=== PATIENT | male | born 2000 | race American Indian/Alaskan Native ===

== ENCOUNTER 2018-12-13 16:24 | Emergency (ER) | payer SELFPAY ==
[2018-12-13 17:58] VITALS: BP 130/74
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
== END 2018-12-13 22:18 | disposition left against medical advice (07) ==
LOC: ED 16:24
DX: R26.89 Other abnormalities of gait and mobility (principal); Z53.21 Procedure and treatment not carried out due to patient leaving prior to being seen by health care provider

== ENCOUNTER 2019-06-13 09:40 | Emergency (ER) | payer SELFPAY ==
[2019-06-13 10:10] VITALS: BP 115/74
--- NOTE | 2019-06-13 12:30 | Emergency Department Report ---
ED Lower Extremity HPI - General Chief Complaint: Extremity Problem,Nontraumatic Stated Complaint: RT KNEE PAIN/CHECK UP Time Seen by Provider: 06/13/19 11:35 Source: patient Mode of arrival: Ambulatory Limitations: No Limitations - History of Present Illness Initial Comments: This is a 19-year-old male nontoxic, well nourished in appearance, no acute s igns of distress presents to the ED with c/o of intermittent chronic right knee pain 1 month. Patient denies any injuries or trauma. Patient denies any numbness, tingling, fever, chills, nausea, vomiting, chest pain, shortness of breath, headache, stiff neck. Patient denies any joint swelling or joint redness. Patient denies decreased range of motion. Patient denies any decreased or abnormal gait due. Patient denies any drug allergies or significant past medical history. Injury: Knee: Right Severity: mild Severity scale (0 -10): 3 Improves With: nothing Worsens With: nothing Associated Symptoms: ambulatory. denies: snap/pop sensation, swelling, numbness, tingling, unable to bear weight, able to partially bear weight - Related Data Allergies Allergy/AdvReac Type Severity Reaction Status Date / Time No Known Allergies Allergy Verified 06/13/19 09:41 ED Review of Systems ROS: Stated complaint: RT KNEE PAIN/CHECK UP Other details as noted in HPI Constitutional: denies: chills, fever Eyes: denies: eye pain, eye discharge, vision change ENT: denies: ear pain, throat pain Respiratory: denies: cough, shortness of breath, wheezing Cardiovascular: denies: chest pain, palpitations Endocrine: no symptoms reported Gastrointestinal: denies: abdominal pain, nausea, diarrhea Genitourinary: denies: urgency, dysuria Musculoskeletal: denies: back pain, joint swelling, arthralgia Skin: denies: rash, lesions Neurological: denies: headache, weakness, paresthesias Psychiatric: denies: anxiety, depression Hematological/Lymphatic: denies: easy bleeding, easy bruising ED Past Medical Hx - Past Medical History Previous Medical History?: No - Surgical History Past Surgical History?: No - Social History Smoking Status: Current Every Day Smoker Substance Use Type: None ED Physical Exam - General Limitations: No Limitations General appearance: alert, in no apparent distress - Head Head exam: Present: atraumatic, normocephalic - Neck Neck exam: Present: normal inspection, full ROM. Absent: lymphadenopathy - Extremities Exam Extremities exam: Present: normal inspection, full ROM, normal capillary refill. Absent: tenderness, joint swelling, calf tenderness - Expanded Lower Extremity Exam Right Hip exam: Present: normal inspection, full ROM. Absent: tenderness, swelling Upper Leg exam: Present: normal inspection, full ROM. Absent: tenderness, swelling Knee exam: Present: normal inspection, full ROM, full knee extension. Absent: tenderness, swelling, abrasion, laceration, ecchymosis, deformity, crepidus, dislocation, erythema, effusion, pain w/ pronation/supination, posterior draw sign, pain/laxity with valgus, pain/laxity with varus Lower Leg exam: Present: normal inspection, full ROM. Absent: tenderness, swelling Ankle exam: Present: normal inspection, full ROM. Absent: tenderness, swelling Foot/Toe exam: Present: normal inspection, full ROM. Absent: tenderness, swelling Neuro vascular tendon exam: Present: no vascular compromise Gait: Positive: observed and normal - Back Exam Back exam: Present: normal inspection, full ROM - Neurological Exam Neurological exam: Present: alert, oriented X3, normal gait - Psychiatric Psychiatric exam: Present: normal affect, normal mood - Skin Skin exam: Present: warm, dry, intact, normal color. Absent: rash ED Course Vital Signs 06/13/19 10:09 Temperature 98.2 F Pulse Rate 59 L Respiratory 18 Rate Blood Pressure 115/74 [Right] O2 Sat by Pulse 99 Oximetry - Reevaluation(s) Reevaluation #1: 06/13/19 12:27 Patient is speaking in full sentences with no signs of distress noted. ED Lower Extremity MDM - Medical Decision Making This is a 19-year-old male that presents with right knee strain. Patient is stable and was examined by me. Patient does not have a life-threatening emergency during today's visit. Patient does have normal gait with no tenderness and no joint swelling. No ecchymosis. no joint redness or swelling. Not warm to touch. No signs of cellulites present. Patient was instructed to follow-up with a orthopedic doctor in 3-5 days. At time of discharge, the patient does not seem toxic or ill in appearance. No acute signs of distress noted. Patient agrees to discharge treatment plan of care. No further questions noted by the patient. Critical care attestation.: If time is entered above; I have spent that time in minutes in the direct care of this critically ill patient, excluding procedure time. ED Disposition Clinical Impression: Strain of right knee Qualifiers: Encounter type: initial encounter Qualified Code(s): S86.911A - Strain of unspecified muscle(s) and tendon(s) at lower leg level, right leg, initial encounter Disposition: [facility] SCREENING EXAM-LEFT Is pt being admited?: No Does the pt Need Aspirin: No Condition: Stable Instructions: Knee Pain (ED) Additional Instructions: Follow-up with a orthopedic doctor in 3-5 days or if symptoms worsen and continue return to emergency room as soon as possible. Referrals: PRIMARY CAREMD [Primary Care Provider] - 3-5 Days ELHAM SANTILLAN MD [Staff Physician] - 3-5 Days [facility] [Outside] - 3-5 Days
== END 2019-06-13 12:49 | disposition left against medical advice (07) ==
LOC: ED 09:40
DX: S86.911A Strain of unspecified muscle(s) and tendon(s) at lower leg level, right leg, initial encounter (principal); F17.200 Nicotine dependence, unspecified, uncomplicated; X58.XXXA Exposure to other specified factors, initial encounter; Y93.89 Activity, other specified; Y92.89 Other specified places as the place of occurrence of the external cause; Y99.8 Other external cause status

== ENCOUNTER 2022-01-22 16:03 | Emergency (ER) | payer SELFPAY ==
[2022-01-23 00:02] VITALS: BP 105/59
--- NOTE | 2022-01-23 00:36 | Emergency Department Report ---
ED General Adult HPI - General Chief complaint: Weakness Stated complaint: GENERAL SICKNESS/WEAKNESS Time Seen by Provider: 01/22/22 23:34 Source: patient, EMS Mode of arrival: Stretcher Limitations: No Limitations - History of Present Illness Initial comments: 23-year-old male with no medical history brought in by EMS for weakness. Patient reports generalized weakness, headache, subjective fever which began suddenly tonight. No fall or injury no cough cold congestion no vision changes no nasal congestion no nausea vomiting abdominal pain. -: Sudden, hour(s) Location: head Radiation: non-radiation Quality: aching Consistency: constant Improves with: none Worsens with: none Associated Symptoms: fever/chills, malaise, weakness Treatments Prior to Arrival: none - Related Data Allergies Allergy/AdvReac Type Severity Reaction Status Date / Time No Known Allergies Allergy Verified 01/22/22 17:33 ED Review of Systems ROS: Stated complaint: GENERAL SICKNESS/WEAKNESS Other details as noted in HPI Comment: All other systems reviewed and negative Constitutional: no symptoms reported ENT: as per HPI Respiratory: denies: cough, orthopnea Cardiovascular: denies: as per HPI Gastrointestinal: denies: abdominal pain, nausea, vomiting Musculoskeletal: denies: joint swelling, arthralgia Skin: as per HPI. denies: rash, lesions Neurological: headache, weakness. denies: numbness, paresthesias, confusion ED Past Medical Hx - Past Medical History Previous Medical History?: No - Social History Smoking Status: Current Every Day Smoker Substance Use Type: None ED Physical Exam - General Limitations: No Limitations General appearance: alert, in no apparent distress - Head Head exam: Present: atraumatic - Eye Eye exam: Present: normal appearance Pupils: Present: normal accommodation - ENT ENT exam: Present: normal exam, normal orophraynx - Neck Neck exam: Present: normal inspection. Absent: tenderness - Respiratory Respiratory exam: Present: normal lung sounds bilaterally. Absent: respiratory distress - Cardiovascular Cardiovascular Exam: Present: regular rate, normal rhythm - GI/Abdominal GI/Abdominal exam: Present: soft. Absent: distended, tenderness - Extremities Exam Extremities exam: Present: normal inspection, full ROM - Back Exam Back exam: Present: normal inspection, full ROM - Neurological Exam Neurological exam: Present: alert, oriented X3, normal gait - Psychiatric Psychiatric exam: Present: normal affect, normal mood - Skin Skin exam: Present: warm, dry, intact, normal color ED Course Vital Signs 01/22/22 01/23/22 01/23/22 17:31 00:01 03:40 Temperature 100 F H 99.8 F H Pulse Rate 99 H 88 Respiratory 18 18 18 Rate Blood Pressure 110/80 105/59 [Left] O2 Sat by Pulse 99 100 98 Oximetry ED Medical Decision Making - Medical Decision Making Differential diagnosis includes migraine headache, COVID, influenza, viral syndrome 22-year-old male with no medical history brought in by EMS for weakness. Patient reports generalized weakness, headache, subjective fever which began suddenly tonight. No fall or injury no cough cold congestion no vision changes no nasal congestion no nausea vomiting abdominal pain. Eating and drinking and has been sleeping throughout ED course, ambulating steadily, no focal weakness, no numbness tingling or paresthesias no confusion no head injury. Tolerating oral intake no vomiting, most likely viral syndrome coupled with a sudden onset in nature. Ibuprofen rest handwashing and mask wearing and return precautions all discussed with patient understand Critical care attestation.: If time is entered above; I have spent that time in minutes in the direct care of this critically ill patient, excluding procedure time. ED Disposition Clinical Impression: General weakness, Headache, Viral illness Disposition: HOME / SELF CARE / HOMELESS Is pt being admited?: No Does the pt Need Aspirin: No Condition: Stable Instructions: Weakness, [id number], Hand Washing Referrals: PRIMARY CARE, [Primary Care Provider] - 3-5 Days
[2022-01-23] MEDS ORDERED: IBUPROFEN 800 MG TAB PO ONE (03:30)
== END 2022-01-23 03:44 | disposition home or self-care (01) ==
LOC: ED 16:03
DX: R53.1 Weakness (principal); R51.9 Headache, unspecified; B34.9 Viral infection, unspecified; F17.200 Nicotine dependence, unspecified, uncomplicated
CPT/HCPCS: 99283